=== PATIENT | male | born 2000 | race Asian ===

== ENCOUNTER 2018-10-21 09:48 | Emergency (ER) | payer OTHER ==
[2018-10-21] MEDS ORDERED: IBUPROFEN 400 MG TAB ONE (10:27)
[2018-10-21] MEDS ORDERED: NA CHLORIDE 0.9% 2,000 ML ONE (10:53)
[2018-10-21] MEDS ORDERED: PROMETHAZINE 25 MG/ML VIAL ONE (10:53)
[2018-10-21] MEDS ORDERED: METRONIDAZOLE 500mg IVPB 500 MG/100 ML BAG IV ONE (10:54)
[2018-10-21] MEDS ORDERED: Ciprofloxacin 200mg IV 200 MG/100 ML IV.SOLN. IV ONE (10:54)
[2018-10-21] MEDS ORDERED: CIPROFLOXACIN 400mg IV 400 MG/200 ML BAG IV ONE (11:16)
[2018-10-21 11:41] LABS: Absolute Lymphocytes (CBC) 1.4 K/uL (0.7-4.9); Basophils % 0.2 % (0-1.3); Hematocrit 46.7 % (39.6-49.0); Lymphocytes % 12.7 % (15.3-44.8); Monocytes % 4.8 % (3.3-12.3); RBC Red Blood Cell Count 5.12 M/uL (4.33-5.43)
[2018-10-21 12:39] LABS: Albumin 3.3 g/dL (3.4-5.0); Bilirubin Direct 0.1 mg/dL (0-0.2); Bilirubin Total 0.5 mg/dL (0.2-1.0); Potassium 3.2 mmol/L (3.5-5.1); Protein, Total 6.4 g/dL (6.4-8.2)
[2018-10-21 12:56] LABS: Urine Blood TRACE (NEG); Urine Glucose NEGATIVE (NEG); Urine Protein 2+ (NEG)
[2018-10-21] MEDS ORDERED: ACETAMINOPHEN 500 MG TAB ONE (14:32)
[2018-10-21] MEDS ORDERED: DIAZEPAM 10 MG/2 ML INJ SYRINGE ONE (14:32)
--- NOTE | 2018-10-21 14:56 | EDPHYS ---
Physician Documentation [facility] Name: Gustavo Stone Age: 17 yrs Sex: Male : 2000 Arrival Date: 10/21/2018 Time: 09:49 Bed 24 Private MD: ED Physician Anthony Noyola HPI: 10/21 10:24 This 17 yrs old Male presents to ER via Ambulatory with complaints of Diarrhea, snw body aches. 10:24 The patient presents to the emergency department with diarrhea, abdominal pain, snw described as crampy. Onset: The symptoms/episode began/occurred suddenly, 1 day(s) ago, and became worse and became persistent. Possible causes: travel, recent [place] trip to [place]. Associated signs and symptoms: Pertinent positives: abdominal pain, anorexia, diarrhea, fever, nausea. Severity of symptoms: At their worst the symptoms were severe in the emergency department the symptoms are unchanged. The patient has not experienced similar symptoms in the past. It is unknown whether or not the patient has recently seen a physician. Mom with similar s/s/trip. Historical: - Allergies: 09:56 No Known Allergies; aa5 - Home Meds: 09:56 None [Active]; aa5 - PMHx: 09:56 None; aa5 - PSHx: 09:56 right knee; aa5 - Immunization history:: Adult Immunizations up to date. - Social history:: Smoking status: Patient/guardian denies using tobacco. - Ebola Screening: : No symptoms or risks identified at this time. ROS: 10:23 Eyes: Negative for injury, pain, redness, and discharge, ENT: Negative for injury, snw pain, and discharge, Neck: Negative for injury, pain, and swelling, Cardiovascular: Negative for chest pain, palpitations, and edema, Respiratory: Negative for shortness of breath, cough, wheezing, and pleuritic chest pain, Back: Negative for injury and pain, : Negative for injury, bleeding, discharge, and swelling, MS/Extremity: Negative for injury and deformity, Skin: Negative for injury, rash, and discoloration, Neuro: Negative for headache, weakness, numbness, tingling, and seizure. 10:23 Constitutional: Positive for body aches, chills, fatigue, fever, malaise, poor PO intake. 10:23 Abdomen/GI: Positive for abdominal pain, diarrhea, abdominal cramps, Negative for black/tarry stool, rectal pain, rectal bleeding. Exam: 10:19 Head/Face: Normocephalic, atraumatic. Eyes: Pupils equal round and reactive to light, snw extra-ocular motions intact. Lids and lashes normal. Conjunctiva and sclera are non-icteric and not injected. Cornea within normal limits. Periorbital areas with no swelling, redness, or edema. ENT: Nares patent. No nasal discharge, no septal abnormalities noted. Tympanic membranes are normal and external auditory canals are clear. Oropharynx with no redness, swelling, or masses, exudates, or evidence of obstruction, uvula midline. Mucous membranes moist. Neck: Trachea midline, no thyromegaly or masses palpated, and no cervical lymphadenopathy. Supple, full range of motion without nuchal rigidity, or vertebral point tenderness. No Meningismus. Chest/axilla: Normal chest wall appearance and motion. Nontender with no deformity. No lesions are appreciated. 10:19 Respiratory: Lungs have equal breath sounds bilaterally, clear to auscultation and percussion. No rales, rhonchi or wheezes noted. No increased work of breathing, no retractions or nasal flaring. 10:19 Male : Normal genitalia with no discharge or lesions. Skin: Warm, dry with normal turgor. Normal color with no rashes, no lesions, and no evidence of cellulitis. MS/ Extremity: Pulses equal, no cyanosis. Neurovascular intact. Full, normal range of motion. Neuro: Awake and alert, GCS 15, oriented to person, place, time, and situation. Cranial nerves II-XII grossly intact. Motor strength 5/5 in all extremities. Sensory grossly intact. Cerebellar exam normal. Normal gait. 10:19 Constitutional: The patient appears alert, awake, febrile, uncomfortable. 10:19 Cardiovascular: Rate: tachycardic, Rhythm: regular, Heart sounds: normal. 10:19 Abdomen/GI: Inspection: abdomen appears normal, Bowel sounds: hyperactive, in all quadrants, Palpation: mild abdominal tenderness, palpation with mobile gases palpable. Vital Signs: 09:56 BP 134 / 65; Pulse 107; Resp 24 S; Temp 102.2(O); Pulse Ox 100% on R/A; Weight 63.5 kg aa5 (R); Height 5 ft. 8 in. (172.72 cm) (R); Pain 7/10; 11:16 BP 135 / 74; Pulse 101; Resp 18 S; Temp 102.2(TE); Pulse Ox 100% on R/A; Pain 8/10; iw 12:15 BP 111 / 66; Pulse 94; Resp 18; Temp 100.9(O); Pulse Ox 99% ; aj1 13:15 BP 114 / 72; Pulse 86; Resp 18; Pulse Ox 100% on R/A; aj1 14:15 BP 116 / 69; Pulse 87; Resp 18; Temp 98.9(O); Pulse Ox 100% on R/A; aj1 15:37 BP 128 / 67; Pulse 99; Resp 16; Temp 99.8(TE); Pulse Ox 100% on R/A; Pain 0/10; iw 09:56 Body Mass Index 21.29 (63.50 kg, 172.72 cm) aa5 MDM: 10:09 Patient medically screened. snw 13:41 Data reviewed: vital signs, nurses notes. Data interpreted: Pulse oximetry: on room air snw is 100 %. Interpretation: normal. Counseling: I had a detailed discussion with the patient and/or guardian regarding: the historical points, exam findings, and any diagnostic results supporting the discharge/admit diagnosis, lab results, the need for outpatient follow up. Response to treatment: the patient's symptoms have markedly improved after treatment. Special discussion: Based on the history and exam findings, there is no indication for further emergent testing or inpatient evaluation. I discussed with the patient/guardian the need to see the primary care provider for further evaluation of the symptoms. 10/21 09:58 Order name: Flu; Complete Time: 10:43 snw 10/21 09:58 Order name: Strep; Complete Time: 10:33 snw 10/21 10:18 Order name: Basic Metabolic Panel; Complete Time: 12:46 snw 10/21 10:18 Order name: CBC with Diff; Complete Time: 11:44 snw 10/21 10:18 Order name: Hepatic Function; Complete Time: 12:46 snw 10/21 10:18 Order name: Lipase; Complete Time: 12:46 snw 10/21 10:34 Order name: Throat Culture EDMS 07/22 11:44 Order name: Urine Dipstick--Ancillary (enter results); Complete Time: 13:07 bd 10/21 10:18 Order name: IV Saline Lock; Complete Time: 11:09 snw 10/21 10:18 Order name: Labs collected and sent; Complete Time: 11:09 snw 10/21 10:18 Order name: Urine Dipstick-Ancillary (obtain specimen); Complete Time: 11: snw 10/21 11:41 Order name: Labs - recollect needed; Complete Time: 12: bd 10/21 13:42 Order name: VS Recheck; Complete Time: 14:29 snw Administered Medications: 10:32 Drug: Motrin 400 mg Route: PO; aj1 15:39 Follow up: Response: No adverse reaction iw 11:00 Drug: NS 0.9% 1000 ml Route: IV; Rate: 1 bolus; Site: right antecubital; iw 13:00 Follow up: IV Status: Completed infusion; IV Intake: 1000ml aj1 11:00 Drug: Phenergan 6.25 mg Route: IVP; Site: right antecubital; iw 12:00 Follow up: Response: No adverse reaction; Nausea is decreased aj1 11:00 Drug: Flagyl 500 mg Volume: 100 ml; Route: IVPB; Rate: 200 ml/hr; Infused Over: 30 iw mins; Site: right antecubital; 13:00 Follow up: IV Status: Completed infusion; IV Intake: 100ml aj1 11:09 Drug: Cipro 400 mg Volume: 200 ml; Route: IVPB; Infused Over: 60 mins; Site: right iw antecubital; 13:00 Follow up: IV Status: Completed infusion; IV Intake: 200ml aj1 13:58 Drug: NS 0.9% 1000 ml Route: IV; Rate: 125 ml/hr; Site: right antecubital; aj1 15:39 Follow up: IV Status: Order to discontinue infusion iw 14:25 Drug: Valium 1 mg Route: IVP; Site: right antecubital; aj1 15:52 Follow up: Response: No adverse reaction aj1 14:25 Drug: Tylenol 650 mg Route: PO; aj1 15:53 Follow up: Response: No adverse reaction aj1 Disposition: 15:53 Co-signature as Attending Physician, Anthony Noyola MD. rn Disposition: 10/21/18 14:55 Discharged to Home. Impression: Traveler's Diarrhea, Dehydration, Fever presenting with conditions classified elsewhere. - Condition is Stable. - Discharge Instructions: Food Choices to Help Relieve Diarrhea, Adult, Dehydration, Adult, Diarrhea, Adult, Rehydration, Adult. - Prescriptions for Flagyl 500 mg Oral Tablet - take 1 tablet by ORAL route every 12 hours for 7 days; 14 tablet. Cipro 500 mg Oral Tablet - take 1 tablet by ORAL route every 12 hours for 7 days; 14 tablet. promethazine 25 mg Oral Tablet - take 1 tablet by ORAL route every 6 hours As needed; 20 tablet. - Work release form, Medication Reconciliation Form, Thank You Letter, Antibiotic Education, Prescription Opioid Use form. - Follow up: Private Physician; When: 2 - 3 days; Reason: Recheck today's complaints, Continuance of care, Re-evaluation by your physician. Follow up: Emergency Department; When: As needed; Reason: Worsening of condition. Signatures: Dispatcher [employer] EDMS Samina Dawn Angela RN RN aj1 Yelena Moscoso, MANUFACTURING COORDINATOR-C MANUFACTURING COORDINATOR-Csnw Ching Vieira RN RN iw Nieto, Roman, MD MD rn Calderon, Audri, RN RN aa5 Corrections: (The following items were deleted from the chart) 15:39 14:55 10/21/2018 14:55 Discharged to Home. Impression: Traveler's Diarrhea; iw Dehydration; Fever presenting with conditions classified elsewhere. Condition is Stable. Forms are Medication Reconciliation Form, Thank You Letter, Antibiotic Education, Prescription Opioid Use. Follow up: Private Physician; When: 2 - 3 days; Reason: Recheck today's complaints, Continuance of care, Re-evaluation by your physician. Follow up: Emergency Department; When: As needed; Reason: Worsening of condition. sn 15:53 15:39 10/21/2018 14:55 Discharged to Home. Impression: Traveler's Diarrhea; aj1 Dehydration; Fever presenting with conditions classified elsewhere. Condition is Stable. Discharge Instructions: Food Choices to Help Relieve Diarrhea, Adult, Dehydration, Adult, Diarrhea, Adult, Rehydration, Adult. Prescriptions for Flagyl 500 mg Oral Tablet - take 1 tablet by ORAL route every 12 hours for 7 days; 14 tablet, Cipro 500 mg Oral Tablet - take 1 tablet by ORAL route every 12 hours for 7 days; 14 tablet, promethazine 25 mg Oral Tablet - take 1 tablet by ORAL route every 6 hours As needed; 20 tablet. and Forms are Medication Reconciliation Form, Thank You Letter, Antibiotic Education, Prescription Opioid Use, Work release form. Follow up: Private Physician; When: 2 - 3 days; Reason: Recheck today's complaints, Continuance of care, Re-evaluation by your physician. Follow up: Emergency Department; When: As needed; Reason: Worsening of condition. iw
--- NOTE | 2018-10-21 14:56 | ER ---
Nurse's Notes [facility] Name: Gustavo Stone Age: 17 yrs Sex: Male : 2000 Arrival Date: 10/21/2018 Time: 09:49 Bed 24 Private MD: Diagnosis: Traveler's Diarrhea;Dehydration;Fever presenting with conditions classified elsewhere Presentation: 10/21 09:54 Presenting complaint: Patient states: body aches x 2 days ago. Pt also reports diarrhea aa5 and nausea. 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 Transition of care: patient was not received from another setting of care. Onset of symptoms was September 2018. Risk Assessment: Do you want to hurt yourself or someone else? Patient reports no desire to harm self or others. Care prior to arrival: None. 09:54 Method Of Arrival: Ambulatory aa5 09:54 Acuity: ALISSON 3 aa5 15:39 Initial Sepsis Screen: Does the patient meet any 2 criteria? No. Patient's initial iw sepsis screen is negative. Does the patient have a suspected source of infection? No. Patient's initial sepsis screen is negative. Historical: - Allergies: 09:56 No Known Allergies; aa5 - Home Meds: 09:56 None [Active]; aa5 - PMHx: 09:56 None; aa5 - PSHx: 09:56 right knee; aa5 - Immunization history:: Adult Immunizations up to date. - Social history:: Smoking status: Patient/guardian denies using tobacco. - Ebola Screening: : No symptoms or risks identified at this time. Screenin:17 Abuse screen: Denies threats or abuse. Denies injuries from another. Nutritional iw screening: No deficits noted. Tuberculosis screening: No symptoms or risk factors identified. Fall Risk None identified. Assessment: 10:05 General: Appears uncomfortable, Behavior is anxious, restless. Pain: Complains of pain aj1 in generalized body aches Pain currently is 9 out of 10 on a pain scale. Quality of pain is described as aching. Neuro: Level of Consciousness is awake, alert, obeys commands, Oriented to person, place, time, situation. Cardiovascular: Patient's skin is warm and dry. Respiratory: Airway is patent Respiratory effort is even, unlabored, Respiratory pattern is regular, symmetrical. GI: Abdomen is flat, non-distended, Bowel sounds present X 4 quads. Abd is soft X 4 quads Reports diarrhea, nausea. : No signs and/or symptoms were reported regarding the genitourinary system. EENT: No signs and/or symptoms were reported regarding the EENT system. Derm: No signs and/or symptoms reported regarding the dermatologic system. Skin is pink, warm \\T\\ dry. normal. Musculoskeletal: No signs and/or symptoms reported regarding the musculoskeletal system. Circulation, motion, and sensation intact. 11:16 Reassessment: Patient appears in no apparent distress at this time. pt rates pain 8/10, iw fluids infusing freely to RAC, pt medicated with Phenergan, will reassess pain level, call light in reach. 12:20 Reassessment: Patient and/or family updated on plan of care and expected duration. Pain aj1 level reassessed. General: Appears in no apparent distress. comfortable, Behavior is calm, cooperative, appropriate for age. Neuro: Level of Consciousness is awake, alert, obeys commands. Cardiovascular: Patient's skin is warm and dry. Respiratory: Airway is patent Respiratory effort is even, unlabored, Respiratory pattern is regular, symmetrical. GI: Abdomen is flat, non-distended. Derm: No signs and/or symptoms reported regarding the dermatologic system. Skin is pink, warm \\T\\ dry. normal. Musculoskeletal: No signs and/or symptoms reported regarding the musculoskeletal system. Circulation, motion, and sensation intact. 13:20 Reassessment: Patient appears in no apparent distress at this time. No changes from aj1 previously documented assessment. Patient and/or family updated on plan of care and expected duration. Pain level reassessed. Patient is alert, oriented x 3, equal unlabored respirations, skin warm/dry/pink. 14:20 Reassessment: Patient and/or family updated on plan of care and expected duration. Pain aj1 level reassessed. Patient is alert, oriented x 3, equal unlabored respirations, skin warm/dry/pink. Patient reports chills, temperature rechecked. S. Danis, GRAIN OPERATIONS MANAGER at bedside and aware. Orders received. 15:37 Reassessment: Patient appears in no apparent distress at this time. Patient and/or iw family updated on plan of care and expected duration. Pain level reassessed. Patient is alert, oriented x 3, equal unlabored respirations, skin warm/dry/pink. Patient states feeling better. Patient states symptoms have improved. Vital Signs: 09:56 BP 134 / 65; Pulse 107; Resp 24 S; Temp 102.2(O); Pulse Ox 100% on R/A; Weight 63.5 kg aa5 (R); Height 5 ft. 8 in. (172.72 cm) (R); Pain 7/10; 11:16 BP 135 / 74; Pulse 101; Resp 18 S; Temp 102.2(TE); Pulse Ox 100% on R/A; Pain 8/10; iw 12:15 BP 111 / 66; Pulse 94; Resp 18; Temp 100.9(O); Pulse Ox 99% ; aj1 13:15 BP 114 / 72; Pulse 86; Resp 18; Pulse Ox 100% on R/A; aj1 14:15 BP 116 / 69; Pulse 87; Resp 18; Temp 98.9(O); Pulse Ox 100% on R/A; aj1 15:37 BP 128 / 67; Pulse 99; Resp 16; Temp 99.8(TE); Pulse Ox 100% on R/A; Pain 0/10; iw 09:56 Body Mass Index 21.29 (63.50 kg, 172.72 cm) aa5 ED Course: 09:49 Patient arrived in ED. aa5 09:54 Arm band placed on. aa5 09:55 Triage completed. aa5 10:05 Patient has correct armband on for positive identification. Bed in low position. Call aj1 light in reach. Side rails up X 1. 10:05 No provider procedures requiring assistance completed. aj1 10:08 Sybil Sadler, RN is Primary Nurse. aj1 10:09 Yelena Moscoso FNP-C [facility]. snw 10:09 Anthony Noyola MD is Attending Physician. snw 11:00 Inserted saline lock: 20 gauge in right antecubital area, using aseptic technique. iw Blood collected. 15:37 IV discontinued, intact, bleeding controlled, No redness/swelling at site. Pressure iw dressing applied. 15:51 Primary Nurse role handed off by Sybil Sadler RN aj1 Administered Medications: 10:32 Drug: Motrin 400 mg Route: PO; aj1 15:39 Follow up: Response: No adverse reaction iw 11:00 Drug: NS 0.9% 1000 ml Route: IV; Rate: 1 bolus; Site: right antecubital; iw 13:00 Follow up: IV Status: Completed infusion; IV Intake: 1000ml aj1 11:00 Drug: Phenergan 6.25 mg Route: IVP; Site: right antecubital; iw 12:00 Follow up: Response: No adverse reaction; Nausea is decreased aj1 11:00 Drug: Flagyl 500 mg Volume: 100 ml; Route: IVPB; Rate: 200 ml/hr; Infused Over: 30 iw mins; Site: right antecubital; 13:00 Follow up: IV Status: Completed infusion; IV Intake: 100ml aj1 11:09 Drug: Cipro 400 mg Volume: 200 ml; Route: IVPB; Infused Over: 60 mins; Site: right iw antecubital; 13:00 Follow up: IV Status: Completed infusion; IV Intake: 200ml aj1 13:58 Drug: NS 0.9% 1000 ml Route: IV; Rate: 125 ml/hr; Site: right antecubital; aj1 15:39 Follow up: IV Status: Order to discontinue infusion iw 14:25 Drug: Valium 1 mg Route: IVP; Site: right antecubital; aj1 15:52 Follow up: Response: No adverse reaction aj1 14:25 Drug: Tylenol 650 mg Route: PO; aj1 15:53 Follow up: Response: No adverse reaction aj1 Intake: 13:00 IV: 1000ml; Total: 1000ml. aj1 13:00 IV: 100ml; Total: 1100ml. aj1 13:00 IV: 200ml; Total: 1300ml. aj1 Outcome: 14:55 Discharge ordered by . jessie 15:38 Discharged to home ambulatory, with family. iw 15:38 Condition: good 15:38 Discharge instructions given to patient, family, Instructed on discharge instructions, follow up and referral plans. medication usage, Demonstrated understanding of instructions, follow-up care, medications, Prescriptions given X 3. 15:39 Patient left the ED. iw 15:53 Patient left the ED. aj1 Signatures: Sybil Sadler RN RN aj1 Yelena Moscoso, MONUMENT LETTERER-C MONUMENT LETTERER-CsnChing Berman, RN RN iw Georgiana Meza, RN RN aa5
== END 2018-10-21 15:53 | disposition home or self-care (01) ==
LOC: ER 09:48
DX: R19.7 Diarrhea, unspecified (principal); E86.0 Dehydration; R50.81 Fever presenting with conditions classified elsewhere
CPT/HCPCS: 36415; 80048; 80076; 81003; 83690; 85025; 87070; 87081; 87804; 96361; 96365; 96368; 96375; 99284; J0744; J2550; J3360; J7030